=== PATIENT | female | born 1945 | race Caucasian/White ===

== ENCOUNTER → 2020-10-16 00:54 | Outpatient (CLI) | payer MEDICARE, SELFPAY ==
[2020-10-16 20:46] LABS: SARS-CoV-2 RNA PCR Negative
== END ==
PROVIDERS: PCP Internal Medicine; Visit Provider Internal Medicine Gastroenterology
DX: Z01.812 Encounter for preprocedural laboratory examination (principal); Z20.822 Contact with and (suspected) exposure to COVID-19
CPT/HCPCS: C9803; U0003; U0005

== ENCOUNTER 2020-10-19 01:23 | Day surgery (SDC) | payer MEDICARE, OTHER, SELFPAY ==
[2020-10-09 09:06] VITALS: BMI 28.3
[2020-10-19 07:10] VITALS: BP 151/68; PULSE 72; RESP 16; TEMP 37; O2SAT 97
[2020-10-19] MEDS: LACTATED RINGERS 1,000 ML 150 ML IV CONT (07:16)
--- NOTE | 2020-10-19 07:47 | PM.HPGS ---
History of Present Illness History of Present Illness Consent: Risks, benefits, and alternatives have been discussed and questions answered. Patient agrees to proceed with procedure. Chief complaint: GERD Narrative: Juani Lo is a 74 year old female with refractory reflux symptoms. She has been on omeprazole for several years. She will at times regurgitate what seems like bile that comes up into her chest. She denies dysphagia for food Review of Systems Review of Systems: All systems reviewed & are unremarkable except as noted in HPI and below PMFSH Social History Social History Substance use type: does not use Living arrangements: alone Gender identity (if verbalized by the patient): Female Spiritual care concerns: No Meds Home Medications and Allergies Home Medications Medication Instructions Recorded Confirmed Type aspirin [Adult Low Dose Aspirin] 81 mg PO DAILY 10/09/20 10/19/20 History atorvastatin 40 mg PO DAILY 10/09/20 10/19/20 History carvedilol [Coreg] 3.125 mg PO BID 10/09/20 10/19/20 History fluoxetine [Prozac] 20 mg PO DAILY 10/09/20 10/19/20 History lisinopril [Zestril] 10 mg PO DAILY 10/09/20 10/19/20 History loratadine 10 mg PO DAILY 10/09/20 10/19/20 History omeprazole 20 mg PO DAILY 10/09/20 10/19/20 History Allergies Allergy/AdvReac Type Severity Reaction Status Date / Time meperidine [From Demerol] Allergy Numbness Verified 10/19/20 07:06 Sulfa (Sulfonamide Allergy Hives Verified 10/19/20 07:06 Antibiotics) codeine AdvReac Hyperactive Verified 10/19/20 07:06 Vital Signs Vital Signs - 24 hr 10/19/20 07:10 Temperature 37.0 C Pulse Rate 72 Respiratory Rate 16 Blood Pressure 151/68 H Pulse Oximetry 97 Exam Const: General: alert Orientation/consciousness: patient oriented x3 Resp: Auscultation: clear to auscultation bilaterally Cardio: Rhythm: regular rhythm GI: GI Palp: Yes Soft to palpation and No Tenderness to palpation present (GI) Neuro: General: patient oriented x3 Assessment and Plan Assessment and plan (1) GERD (gastroesophageal reflux disease): Code(s): K21.9 - Gastro-esophageal reflux disease without esophagitis Status: Acute Assessment and Plan: EGD with possible biopsy or dilatation or cautery.
--- NOTE | 2020-10-19 07:54 | WPDANESEPPF ---
Anes - Initial Pre Proc Eval Procedure: Operation Date: 10/19/20 08:30 Proposed Procedures p Esophagogastroduodenoscopy - Juan Miguel Hu MD Date/Time: 10/19/20 07:54 Surgeon: Juan Miguel Hu MD Pre Op Diagnosis: GERD Patient Data Age: 74 Gender: F Height: 5 ft 3 in Weight: 74 kg Last Vital Signs Temp 98.6 F 10/19/20 07:10 Pulse 72 10/19/20 07:10 Resp 16 10/19/20 07:10 BP 151/68 H 10/19/20 07:10 Pulse Ox 97 10/19/20 07:10 Allergies Allergy/AdvReac Type Severity Reaction Status Date / Time meperidine [From Demerol] Allergy Numbness Verified 10/19/20 07:06 Sulfa (Sulfonamide Allergy Hives Verified 10/19/20 07:06 Antibiotics) codeine AdvReac Hyperactive Verified 10/19/20 07:06 Home Medications Medication Instructions Recorded Confirmed Type aspirin [Adult Low Dose Aspirin] 81 mg PO DAILY 10/09/20 10/19/20 History atorvastatin 40 mg PO DAILY 10/09/20 10/19/20 History carvedilol [Coreg] 3.125 mg PO BID 10/09/20 10/19/20 History fluoxetine [Prozac] 20 mg PO DAILY 10/09/20 10/19/20 History lisinopril [Zestril] 10 mg PO DAILY 10/09/20 10/19/20 History loratadine 10 mg PO DAILY 10/09/20 10/19/20 History omeprazole 20 mg PO DAILY 10/09/20 10/19/20 History Patient hx anesthesia problems: none Family hx anesthesia problems: none [facility] Past Medical History Medical History (Updated 10/19/20 @ 07:53 by Morris Meyers MD) GERD (gastroesophageal reflux disease) Hyperlipidemia Hypertension Social History Social History Substance use type: does not use Living arrangements: alone Gender identity (if verbalized by the patient): Female Spiritual care concerns: No Anes - Eval Final PreProcedure Day of Procedure 10/19/20 07:54 Patient weight: obese Heart: regular rate and rhythm Lungs: clear to auscultation Airway: Mallampati scale class II Neurological: alert and oriented Last oral intake: >/= 8 hours ASA classification: III Emergent: no Anesthetic plan: proceed Anesthesia type and monitoring: general GIVS and standard monitoring Informed Consent: The patient's anesthetic plan and its attendant risks and benefits were discussed with the patient/family/POA. Questions were solicited and answers provided to the satisfaction of the patient/family/POA.
[2020-10-19 08:34] VITALS: BP 112/60; PULSE 56; RESP 17; O2SAT 95
[2020-10-19 08:44] VITALS: BP 132/59; PULSE 62; RESP 20; O2SAT 96
[2020-10-19 08:54] VITALS: BP 145/68; PULSE 59; RESP 16; O2SAT 96
== END 2020-10-19 09:16 | disposition home or self-care (01) ==
PROVIDERS: PCP Internal Medicine; Visit Provider Internal Medicine Gastroenterology
PROC: 0DJ08ZZ Inspection of Upper Intestinal Tract, Via Natural or Artificial Opening Endoscopic (ICD-10-PCS; CPT 43235; principal; 2020-10-19 08:30)
DX: K21.9 Gastro-esophageal reflux disease without esophagitis (principal); K31.7 Polyp of stomach and duodenum; Z79.82 Long term (current) use of aspirin; I10 Essential (primary) hypertension; E66.9 Obesity, unspecified; Z68.28 Body mass index [BMI] 28.0-28.9, adult
CPT/HCPCS: 43251; 43239; 88305; J2704; J7120

== ENCOUNTER 2021-05-21 02:25 | Day surgery (SDC) | payer MEDICARE, OTHER, SELFPAY ==
[2021-05-02 13:33] VITALS: BMI 30.2
--- NOTE | 2021-05-20 13:27 | PM.HPGS ---
History of Present Illness History of Present Illness Consent: Risks, benefits, and alternatives have been discussed and questions answered. Patient agrees to proceed with procedure. Chief complaint: abnormal CAT scan Narrative: Juani Lo is a 75 year old female who was being investigated because of an abnormality on the CT scan. She was found have abnormal thickening of most of the stomach including the body antrum and pylorus. Review of Systems Review of Systems: All systems reviewed & are unremarkable except as noted in HPI and below PMFSH Past Medical History Medical History GERD (gastroesophageal reflux disease) Hyperlipidemia Hypertension Social History Social History Smoking status: Never smoker Substance use type: does not use Living arrangements: alone Gender identity (if verbalized by the patient): Female Spiritual care concerns: No Meds Home Medications and Allergies Home Medications Medication Instructions Recorded Confirmed Type aspirin 81 mg PO DAILY 10/09/20 05/02/21 History atorvastatin 40 mg PO DAILY 10/09/20 05/02/21 History carvedilol [Coreg] 3.125 mg PO BID 10/09/20 05/02/21 History fluoxetine [Prozac] 20 mg PO DAILY 10/09/20 05/02/21 History omeprazole 20 mg PO DAILY 10/09/20 05/02/21 History losartan-hydrochlorothiazide 1 tablet PO DAILY 05/02/21 05/02/21 History Allergies Allergy/AdvReac Type Severity Reaction Status Date / Time Sulfa (Sulfonamide Allergy Hives Verified 05/02/21 13:33 Antibiotics) codeine AdvReac Hyperactive Verified 05/02/21 13:33 meperidine [From Demerol] AdvReac Numbness Verified 05/21/21 08:47 Exam Const: General: alert Orientation/consciousness: patient oriented x3 Resp: Auscultation: clear to auscultation bilaterally Cardio: Rhythm: regular rhythm GI: GI Palp: Yes Soft to palpation and No Tenderness to palpation present (GI) Neuro: General: patient oriented x3 Assessment and Plan Assessment and plan (1) Abnormal CT scan, gastrointestinal tract: Code(s): R93.3 - Abnormal findings on diagnostic imaging of other parts of digestive tract Status: Acute Assessment and Plan: EGD with possible biopsy or dilatation or cautery.
[2021-05-21 11:29] VITALS: BP 146/69; PULSE 64; RESP 18; TEMP 36.1; O2SAT 99; BMI 30.9
[2021-05-21] MEDS: LACTATED RINGERS 1,000 ML 150 ML IV CONT (11:43)
--- NOTE | 2021-05-21 11:56 | WPDANESEPPF ---
Anes - Initial Pre Proc Eval Procedure: Operation Date: 05/21/21 12:45 Proposed Procedures p Esophagogastroduodenoscopy - Juan Miguel Hu MD Date/Time: 05/21/21 11:56 Surgeon: Juan Miguel Hu MD Pre Op Diagnosis: abnormal CAT scan Patient Data Age: 75 Gender: F Height: 1.57 m Weight: 76.8 kg Last Vital Signs Temp 96.9 F L 05/21/21 11:29 Pulse 64 05/21/21 11:29 Resp 18 05/21/21 11:29 BP 146/69 H 05/21/21 11:29 Pulse Ox 99 05/21/21 11:29 Allergies Allergy/AdvReac Type Severity Reaction Status Date / Time Sulfa (Sulfonamide Allergy Hives Verified 05/02/21 13:33 Antibiotics) codeine AdvReac Hyperactive Verified 05/02/21 13:33 meperidine [From Demerol] AdvReac Numbness Verified 05/21/21 08:47 Home Medications Medication Instructions Recorded Confirmed Type aspirin 81 mg PO DAILY 10/09/20 05/02/21 History atorvastatin 40 mg PO DAILY 10/09/20 05/02/21 History carvedilol [Coreg] 3.125 mg PO BID 10/09/20 05/02/21 History fluoxetine [Prozac] 20 mg PO DAILY 10/09/20 05/02/21 History omeprazole 20 mg PO DAILY 10/09/20 05/02/21 History losartan-hydrochlorothiazide 1 tablet PO DAILY 05/02/21 05/02/21 History Patient hx anesthesia problems: none Family hx anesthesia problems: none Results Review: All pre-operative results and documents have been reviewed as part of the pre-operative evaluation. [facility] Past Medical History Medical History GERD (gastroesophageal reflux disease) Hyperlipidemia Hypertension Social History Social History Smoking status: Never smoker Substance use type: does not use Living arrangements: alone Gender identity (if verbalized by the patient): Female Spiritual care concerns: No Anes - Eval Final PreProcedure Day of Procedure 05/21/21 11:56 Patient weight: obese Heart: regular rate and rhythm Lungs: clear to auscultation Airway: Mallampati scale class III Neurological: alert and oriented Last oral intake: >/= 8 hours ASA classification: III Emergent: no Anesthetic plan: proceed Anesthesia type and monitoring: general GIVS and standard monitoring Results Review: All pre-operative results and documents have been reviewed as part of the pre-operative evaluation. Informed Consent: The patient's anesthetic plan and its attendant risks and benefits were discussed with the patient/family/POA. Questions were solicited and answers provided to the satisfaction of the patient/family/POA.
[2021-05-21] MEDS: SIMETHICONE ORAL SUSPENSION 20 MG/0.3 ML 30 ML BOTTLE 0.6 ML IRRIGATION (12:56)
[2021-05-21 13:03] VITALS: BP 134/54; PULSE 64; RESP 19; O2SAT 98
[2021-05-21 13:13] VITALS: BP 127/63; PULSE 63; RESP 20; O2SAT 98
[2021-05-21 13:23] VITALS: BP 141/59; PULSE 60; RESP 22; O2SAT 99
== END 2021-05-21 13:33 | disposition home or self-care (01) ==
PROVIDERS: PCP Internal Medicine; Visit Provider Internal Medicine Gastroenterology
PROC: 0DJ08ZZ Inspection of Upper Intestinal Tract, Via Natural or Artificial Opening Endoscopic (ICD-10-PCS; CPT 43235; principal; 2021-05-21 12:45)
DX: K21.9 Gastro-esophageal reflux disease without esophagitis (principal); K31.7 Polyp of stomach and duodenum; I10 Essential (primary) hypertension; E78.5 Hyperlipidemia, unspecified; Z79.82 Long term (current) use of aspirin
CPT/HCPCS: 43239; 87081; J2704; J7120

== ENCOUNTER 2022-04-10 00:43 | Day surgery (SDC) | payer MEDICARE, OTHER, SELFPAY ==
[2022-03-24 14:55] VITALS: BMI 30.2
--- NOTE | 2022-04-09 14:56 | PM.HPGS ---
History of Present Illness History of Present Illness Consent: Risks, benefits, and alternatives have been discussed and questions answered. Patient agrees to proceed with procedure. Chief complaint: family hx of colon cancer-father Narrative: Juani Lo is a 76 year old female Who is referred for colon cancer screening. Her father had colon cancer. Review of Systems Review of Systems: All systems reviewed & are unremarkable except as noted in HPI and below PMFSH Past Medical History Medical History GERD (gastroesophageal reflux disease) Hyperlipidemia Hypertension Social History Social History Smoking status: Never smoker Substance use type: does not use Living arrangements: alone Gender identity (if verbalized by the patient): Female Spiritual care concerns: No Meds Home Medications and Allergies Home Medications Medication Instructions Recorded Confirmed Type aspirin 81 mg tablet 81 mg PO DAILY 10/09/20 04/10/22 History atorvastatin 80 mg tablet 40 mg PO DAILY 10/09/20 04/10/22 History carvedilol 3.125 mg tablet (Coreg) 3.125 mg PO BID 10/09/20 04/10/22 History fluoxetine 20 mg capsule (Prozac) 20 mg PO DAILY 10/09/20 04/10/22 History omeprazole 20 mg capsule,delayed 20 mg PO DAILY 10/09/20 04/10/22 History release losartan 50 mg-hydrochlorothiazide 1 tablet PO DAILY 05/02/21 04/10/22 History 12.5 mg tablet Allergies Allergy/AdvReac Type Severity Reaction Status Date / Time Sulfa (Sulfonamide Allergy Hives Verified 04/10/22 09:02 Antibiotics) codeine AdvReac Hyperactive Verified 04/10/22 09:02 meperidine [From Demerol] AdvReac Numbness Verified 04/10/22 09:02 Exam Const: General: alert Orientation/consciousness: patient oriented x3 Resp: Auscultation: clear to auscultation bilaterally Cardio: Rhythm: regular rhythm GI: GI Palp: Yes Soft to palpation and No Tenderness to palpation present (GI) Neuro: General: patient oriented x3 Assessment and Plan Assessment and plan (1) Colon cancer screening: Code(s): Z12.11 - Encounter for screening for malignant neoplasm of colon Status: Acute
[2022-04-10 09:03] VITALS: BP 137/68; PULSE 85; RESP 17; TEMP 36.5; O2SAT 98; BMI 30.2
[2022-04-10] MEDS: LACTATED RINGERS 1,000 ML 150 ML IV CONT (09:14)
--- NOTE | 2022-04-10 09:37 | P.PNAN_ITS ---
Anes - Initial Pre Proc Eval Procedure: Operation Date: 04/10/22 10:30 Proposed Procedures p Screening Colonoscopy - Juan Miguel Hu MD Date/Time: 04/10/22 09:37 Surgeon: Juan Miguel Hu MD Pre Op Diagnosis: family hx of colon cancer-father Patient Data Age: 76 Gender: F Height: 1.57 m Weight: 74.9 kg Last Vital Signs Temp 97.7 F 04/10/22 09:03 Pulse 85 04/10/22 09:03 Resp 17 04/10/22 09:03 BP 137/68 04/10/22 09:03 Pulse Ox 98 04/10/22 09:03 O2 Del Method Room Air 04/10/22 09:03 Allergies Allergy/AdvReac Type Severity Reaction Status Date / Time Sulfa (Sulfonamide Allergy Hives Verified 04/10/22 09:02 Antibiotics) codeine AdvReac Hyperactive Verified 04/10/22 09:02 meperidine [From Demerol] AdvReac Numbness Verified 04/10/22 09:02 Home Medications Medication Instructions Recorded Confirmed Type aspirin 81 mg tablet 81 mg PO DAILY 10/09/20 04/10/22 History atorvastatin 80 mg tablet 40 mg PO DAILY 10/09/20 04/10/22 History carvedilol 3.125 mg tablet (Coreg) 3.125 mg PO BID 10/09/20 04/10/22 History fluoxetine 20 mg capsule (Prozac) 20 mg PO DAILY 10/09/20 04/10/22 History omeprazole 20 mg capsule,delayed 20 mg PO DAILY 10/09/20 04/10/22 History release losartan 50 mg-hydrochlorothiazide 1 tablet PO DAILY 05/02/21 04/10/22 History 12.5 mg tablet Patient hx anesthesia problems: none Family hx anesthesia problems: none Results Review: All pre-operative results and documents have been reviewed as part of the pre- operative evaluation. [facility] Past Medical History Medical History GERD (gastroesophageal reflux disease) Hyperlipidemia Hypertension Social History Social History Smoking status: Never smoker Substance use type: does not use Living arrangements: alone Gender identity (if verbalized by the patient): Female Spiritual care concerns: No Anes - Eval Final PreProcedure Day of Procedure 04/10/22 09:37 Patient weight: obese Heart: regular rate and rhythm Lungs: clear to auscultation Airway: Mallampati scale class II Neurological: alert and oriented Last oral intake: >/= 8 hours ASA classification: III Emergent: no Anesthetic plan: proceed Anesthesia type and monitoring: general GIVS and standard monitoring Results Review: All pre-operative results and documents have been reviewed as part of the pre- operative evaluation. Informed Consent: The patient's anesthetic plan and its attendant risks and benefits were discussed with the patient/family/POA. Questions were solicited and answers provided to the satisfaction of the patient/family/POA.
[2022-04-10 10:24] VITALS: BP 99/62; PULSE 58; RESP 18; O2SAT 95
[2022-04-10 10:34] VITALS: BP 116/66; PULSE 60; RESP 20; O2SAT 96
[2022-04-10 10:44] VITALS: BP 143/65; PULSE 52; RESP 17; O2SAT 99
== END 2022-04-10 11:21 | disposition home or self-care (01) ==
PROVIDERS: PCP Internal Medicine; Visit Provider Internal Medicine Gastroenterology
PROC: 0DJD8ZZ Inspection of Lower Intestinal Tract, Via Natural or Artificial Opening Endoscopic (ICD-10-PCS; CPT 45378; principal; 2022-04-10 10:30)
DX: Z12.11 Encounter for screening for malignant neoplasm of colon (principal); K51.40 Inflammatory polyps of colon without complications; Z80.0 Family history of malignant neoplasm of digestive organs; I10 Essential (primary) hypertension; E78.5 Hyperlipidemia, unspecified; K21.9 Gastro-esophageal reflux disease without esophagitis; Z79.82 Long term (current) use of aspirin; E66.9 Obesity, unspecified; Z68.30 Body mass index [BMI] 30.0-30.9, adult
CPT/HCPCS: 45385; 88305; J2704; J7120

== ENCOUNTER 2023-03-12 14:08 | Outpatient (CLI) | payer MEDICARE, OTHER, SELFPAY ==
[2023-03-12 14:30] LABS: Basophils Absolute Auto 0.1 K/mm3 (0.0-0.1); Basophils Percent Auto 0.8 % (0.2-1.2); Eosinophils Absolute Auto 0.1 K/mm3 (0-0.3); Eosinophils Percent Auto 1.9 % (0-4.4); Hematocrit 49.2 % (37.0-47.0); Hemoglobin 15.2 g/dL (12.0-15.0); Immature Granulocyte Absolute 0.03 K/mm3 (0.00-0.031); Immature Granulocyte Percent A 0.5 % (0-0.5); Lymphocytes Absolute Auto 0.95 K/mm3 (0.9-3.2); Lymphocytes Percent Auto 14.8 % (18.3-44.2); Mean Corpuscular HGB Conc 30.9 g/dl (32-36); Mean Corpuscular Volume 90.8 fl (80-100); Mean Platelet Volume 9.6 fl (7.4-10.4); Monocytes Absolute Auto 0.6 K/mm3 (0.1-0.6); Monocytes Percent Auto 8.5 % (2.6-8.5); Neutrophils Absolute Auto 4.7 K/mm3 (1.3-6.7); Neutrophils Percent Auto 73.5 % (45.5-73.1); Platelet Count Result 301 k/mm3 (150-375); Red Blood Count 5.42 M/mm3 (4.2-5.4); Red Cell Distribution Width 13.7 % (11.5-14.5); White Blood Count 6.4 K/mm3 (4.5-10.0)
[2023-03-12 15:52] LABS: Alanine Aminotransferase 30 U/L (6-35); Albumin Level 4.5 g/dL (3.5-5.1); Alkaline Phosphatase 60 U/L (38-126); Anion Gap 7 mmol/L (8-16); Aspartate Amino Transferase 27 U/L (14-36); Bilirubin,Total 0.7 mg/dL (0.2-1.3); Blood Urea Nitrogen 16 mg/dL (7-17); Calcium 9.4 mg/dL (8.4-10.2); Carbon Dioxide 30 mmol/L (22-30); Chloride 104 mmol/L (98-107); Estimated Glomerular Filt Rate 44; Glucose 96 mg/dL (65-110); Potassium 4.1 mmol/L (3.4-5.0); Sodium 141 mmol/L (137-145)
[2023-03-15 12:27] LABS: Erythropoietin (EPO) 14.7 mIU/mL (2.6-18.5)
[2023-03-23 12:53] LABS: Block/Specimen ID Not Given; CALR Exon 9 Mutation Not Detected (Not Detected); CSF3R Exon 14/17 Mutation Not Detected (Not Detected); JAK2 Exon 12 Mutation Not Detected (Not Detected); JAK2 V617F Mutation Not Detected (Not Detected); MPL Exon 10 Mutation Not Detected (Not Detected); Specimen Source Blood
== END 2023-03-12 14:09 | disposition home or self-care (01) ==
PROVIDERS: PCP Internal Medicine; Visit Provider Internal Medicine Hematology & Oncology
DX: D45 Polycythemia vera (principal)
CPT/HCPCS: 36415; 80053; 81219; 81270; 81279; 81339; 81479; 82668; 85025

== ENCOUNTER 2023-07-15 13:46 | Outpatient (CLI) | payer MEDICARE, OTHER, SELFPAY ==
[2023-07-15 14:01] LABS: Basophils Absolute Auto 0.1 K/mm3 (0.0-0.1); Basophils Percent Auto 0.9 % (0.2-1.2); Eosinophils Absolute Auto 0.1 K/mm3 (0-0.3); Eosinophils Percent Auto 1.2 % (0-4.4); Hematocrit 46.2 % (37.0-47.0); Hemoglobin 14.6 g/dL (12.0-15.0); Immature Granulocyte Absolute 0.01 K/mm3 (0.00-0.031); Immature Granulocyte Percent A 0.2 % (0-0.5); Lymphocytes Absolute Auto 1.36 K/mm3 (0.9-3.2); Lymphocytes Percent Auto 23.4 % (18.3-44.2); Mean Corpuscular HGB Conc 31.6 g/dl (32-36); Mean Corpuscular Hemoglobin 27.6 pg (26-34); Mean Corpuscular Volume 87.3 fl (80-100); Mean Platelet Volume 9.5 fl (7.4-10.4); Monocytes Absolute Auto 0.5 K/mm3 (0.1-0.6); Monocytes Percent Auto 9.1 % (2.6-8.5); Neutrophils Absolute Auto 3.8 K/mm3 (1.3-6.7); Neutrophils Percent Auto 65.2 % (45.5-73.1); Platelet Count Result 215 k/mm3 (150-375); Red Blood Count 5.29 M/mm3 (4.2-5.4); Red Cell Distribution Width 13.4 % (11.5-14.5); White Blood Count 5.8 K/mm3 (4.5-10.0)
== END 2023-07-15 13:47 | disposition home or self-care (01) ==
LOC: ANHLAB 13:51
PROVIDERS: PCP Internal Medicine; Visit Provider Internal Medicine Hematology & Oncology
DX: D45 Polycythemia vera (principal)
CPT/HCPCS: 36415; 85025

== ENCOUNTER 2024-01-14 13:43 | Outpatient (CLI) | payer MEDICARE, OTHER, SELFPAY ==
[2024-01-14 14:01] LABS: Basophils Absolute Auto 0.1 K/mm3 (0.0-0.1); Basophils Percent Auto 1.1 % (0.2-1.2); Eosinophils Absolute Auto 0.1 K/mm3 (0-0.3); Eosinophils Percent Auto 1.3 % (0-4.4); Hemoglobin 14.2 g/dL (12.0-15.0); Immature Granulocyte Absolute 0.01 K/mm3 (0.00-0.031); Immature Granulocyte Percent A 0.2 % (0-0.5); Lymphocytes Absolute Auto 1.19 K/mm3 (0.9-3.2); Lymphocytes Percent Auto 21.8 % (18.3-44.2); Mean Corpuscular HGB Conc 31.6 g/dl (32-36); Mean Corpuscular Hemoglobin 26.6 pg (26-34); Mean Corpuscular Volume 84.3 fl (80-100); Mean Platelet Volume 9.7 fl (7.4-10.4); Monocytes Absolute Auto 0.5 K/mm3 (0.1-0.6); Monocytes Percent Auto 9.5 % (2.6-8.5); Neutrophils Absolute Auto 3.6 K/mm3 (1.3-6.7); Neutrophils Percent Auto 66.1 % (45.5-73.1); Platelet Count Result 194 k/mm3 (150-375); Red Blood Count 5.34 M/mm3 (4.2-5.4); Red Cell Distribution Width 13.8 % (11.5-14.5); White Blood Count 5.5 K/mm3 (4.5-10.0)
== END 2024-01-14 13:44 | disposition home or self-care (01) ==
LOC: ANHLAB 13:45
PROVIDERS: PCP Internal Medicine; Visit Provider Internal Medicine Hematology & Oncology
DX: D45 Polycythemia vera (principal)
CPT/HCPCS: 36415; 85025